=== PATIENT | male | born 1940 | race Caucasian/White ===

== ENCOUNTER 2023-07-12 06:35 | Day surgery (SDC) | payer OTHER ==
[2023-07-05 14:54] LABS: BASOPHILS # (AUTO) 0.1 X10'3 (0-0.2); BASOPHILS % (AUTO) 0.7 % (0-1); EOSINOPHILS # (AUTO) 0.2 X10'3 (0-0.9); EOSINOPHILS % (AUTO) 2.6 % (0-6); LYMPHOCYTES # (AUTO) 2.6 X10'3 (1.1-4.8); LYMPHOCYTES % (AUTO) 29.4 % (21-51); MEAN CORPUSCULAR HEMOGLOBIN 33.1 PG (27.0-31.0); MEAN CORPUSCULAR HGB CONC 34.7 g/dL (33.0-36.5); MEAN CORPUSCULAR VOLUME 95.3 FL (78-98); MEAN PLATELET VOLUME 8.4 FL (7.4-10.4); MONOCYTES % (AUTO) 11.7 % (2-12); NEUTROPHILS # (AUTO) 4.9 X10'3 (1.8-7.7); NEUTROPHILS % (AUTO) 55.6 % (42-75); PRE OP HEMATOCRIT 42.3 % (42.0-52.0); PRE OP HEMOGLOBIN 14.7 g/dL (14.0-17.9); PRE OP PLATELET COUNT 197 X10'3 (140-440); PRE OP WHITE BLOOD COUNT 8.8 10'3 (4.8-10.8); RED BLOOD COUNT 4.44 X10'6 (4.70-6.10); RED CELL DISTRIBUTION WIDTH 12.6 % (11.5-14.5)
[2023-07-05 15:05] LABS: ALBUMIN 3.6 G/DL (3.4-5.0); ALKALINE PHOSPHATASE 64 IU/L (46-116); BLOOD UREA NITROGEN 19 MG/DL (7-18); BUN/CREATININE RATIO 19.6 (10.0-20.0); CALCIUM 9.2 MG/DL (8.5-10.1); CHLORIDE 106 MMOL/L (99-107); CREATININE 0.97 MG/DL (0.60-1.10); PRE OP ALT 29 U/L (30-65); PRE OP ANION GAP 7 (8-16); PRE OP AST 24 U/L (10-37); PRE OP BILIRUB, TOTAL 1.4 MG/DL (0.0-1.0); PRE OP GLUCOSE 117 MG/DL (70-104); PRE OP SODIUM 143 MMOL/L (135-145); TOTAL CARBON DIOXIDE 29.7 MMOL/L (24-32); TOTAL PROTEIN 7.2 G/DL (6.4-8.2); eGFR 74 ML/MIN
[2023-07-05 15:07] LABS: PRE OP POTASSIUM 3.2 MMOL/L (3.4-5.1)
[~2023-07-12] VITALS: Ht 182.9 cm; Wt 93.6 kg
[~2023-07-12 06:35] MED LIST: APIX5TAB3 PO; DOCUMENT DATE & TIME OF BETA-BLOCKER PO ONE; METO-395 PO; OLME1TAB50 PO; TRAV2.5D6 EACHEYE; cefazolin 2gm/D5W 100mL 100 ML IV ONE; famotidine 20mg tablet PO ONE; ringers solution, lacted 1,000 ML IV SCH
[2023-07-12] MEDS ORDERED: BUPIVAcaine/PF 2.5mg/ml (0.25%) 10ml vial ONE (06:36)
[2023-07-12 07:45] VITALS: BP 137/71; PULSE 87; RESP 15; TEMP 97.9; O2SAT 95
[2023-07-12] MEDS ORDERED: ondansetron/PF 4mg/2ml inj IV PRN (08:00)
[2023-07-12] MEDS ORDERED: hydrALAZINE 20mg/ml inj. IV PRN (08:00)
[2023-07-12] MEDS ORDERED: morphine 4 MG/ML inj SYRINge IV PRN (08:00)
[2023-07-12] MEDS ORDERED: morphine 2 MG/ML inj. syringe IV PRN (08:00)
[2023-07-12] MEDS ORDERED: ringers solution, lacted 1,000 ML IV SCH (08:00)
[2023-07-12 08:21] LABS: ISTAT CREATININE 0.9 mg/dL (0.8-1.3); ISTAT HGB 14.6 g/dl (14.0-17.9); ISTAT IONIZED CALCIUM 1.13 mmol/L (1.03-1.32); ISTAT K 3.6 mmol/L (3.5-5.1); POC BUN/CREATININE RATIO 21.1 (5.4-32.0)
[2023-07-12] MEDS ORDERED: MIDAZolam 1 MG/ML 5ML VIAL ONE (09:00)
[2023-07-12] MEDS ORDERED: fentaNYL/PF 50MCG/1 ML 2ML syringe ONE (09:00)
[2023-07-12] MEDS ORDERED: LIDOcaine 0.5% (5mg/ml) 50ml vial ONE (09:34)
[2023-07-12] MEDS ORDERED: flumazenil 0.1 mg/ml inj. IV ONE (09:36)
[2023-07-12 09:45] VITALS: BP 125/70; PULSE 56; RESP 16; O2SAT 96
--- NOTE | 2023-07-12 09:45 | NUR ---
Received from OR via BED, accompanied by Anesthesiologist and report given by Anesthesiologist. PATIENT WAKING UP, NO S/S OF PAIN, V/S WNL, SCD ON, 20G TO LUE RUE, LEFT WRIST DRESSING CDI W/ SLING. ICE AND ELEVATED RUE
[2023-07-12 09:55] VITALS: BP 122/68; PULSE 54; RESP 15; O2SAT 97
[2023-07-12 10:05] VITALS: BP 115/68; PULSE 53; RESP 14; O2SAT 97
[2023-07-12 10:15] VITALS: BP 119/65; PULSE 62; RESP 15; O2SAT 97
--- NOTE | 2023-07-12 10:15 | NUR ---
PATIENT A&OX4, DENIES PAIN, V/S WNL, SCD OFF, 20G TO LUE RUE D/C, LEFT WRIST DRESSING CDI W/ SLING. ICE AND ELEVATED RUE. I HAVE REVIEWED D/C INSTRUCTIONS WITH PATIENT INSTRUCTIONS WITH PATIENT AND THEY HAVE VERBALIZED UNDERSTANDING. PATIENT D/C HOME WITH ALL BELONGINGS AND FAMILY TRANSPORTED PATIENT HOME.
== END 2023-07-12 10:15 | disposition home or self-care (01) ==
LOC: PAS 06:35
PROVIDERS: ATTEND Orthopaedic Surgery Hand Surgery
DX: G56.02 Carpal tunnel syndrome, left upper limb (principal); I10 Essential (primary) hypertension; I48.91 Unspecified atrial fibrillation; M16.11 Unilateral primary osteoarthritis, right hip; Z87.891 Personal history of nicotine dependence; Z86.73 Personal history of transient ischemic attack (TIA), and cerebral infarction without residual deficits; Z98.890 Other specified postprocedural states; Z79.01 Long term (current) use of anticoagulants; Z79.899 Other long term (current) drug therapy; Z85.828 Personal history of other malignant neoplasm of skin; Z72.89 Other problems related to lifestyle; Z82.49 Family history of ischemic heart disease and other diseases of the circulatory system; Z80.0 Family history of malignant neoplasm of digestive organs; Z82.3 Family history of stroke
CPT/HCPCS: 36415; 64721; 80047; 80053; 85025; 93005; J0690; J2250; J3010; J3490; J7030; J7120; Z7506; Z7512; A4215